=== PATIENT | male | born 1960 | race Caucasian/White ===

== ENCOUNTER 2017-03-21 06:25 | Day surgery (SDC) | payer OTHER ==
[~2017-03-21] VITALS: Ht 182.9 cm; Wt 103.9 kg
[2017-03-21] MEDS ORDERED: FOLIC ACID0.4 MG PO (06:50)
[2017-03-21] MEDS ORDERED: FLAXSEED1000 MG PO (06:50)
[2017-03-21] MEDS ORDERED: L-ARGININE500 MG PO (06:50)
[2017-03-21] MEDS ORDERED: PANAX GINSENG PO (06:51)
[2017-03-21] MEDS ORDERED: NIACIN50 MG PO (06:51)
[2017-03-21] MEDS ORDERED: ZINC30 MG PO (06:51)
--- NOTE | 2017-03-21 08:15 | NUR ---
03/21/17 [address] [facility] [address] TO BEDSIDE SPEAKING WITH THE PT.
== END 2017-03-21 08:46 | disposition home or self-care (01) ==
LOC: DS 06:25 → OPS 06:25 → DS 06:45 → OPS 06:45
PROVIDERS: Surgery
PROC: 0DJD8ZZ Inspection of Lower Intestinal Tract, Via Natural or Artificial Opening Endoscopic (ICD-10-PCS; principal; 2017-03-21 06:45)
DX: Z12.11 Encounter for screening for malignant neoplasm of colon (principal); K57.30 Diverticulosis of large intestine without perforation or abscess without bleeding; K21.9 Gastro-esophageal reflux disease without esophagitis; Z98.890 Other specified postprocedural states
CPT/HCPCS: 99152; 99153; J2250; J3010; J7120